=== PATIENT | female | born 1965 | race Two or more races ===

== ENCOUNTER 2018-12-25 05:51 | Day surgery (SDC) | payer OTHER ==
[~2018-12-25 05:51] MED LIST: ATIVAN2 M1 PO; CALTRATE 600 +1 EACH PO; DEPAKOTE ER250 MG PO; ESKALITH300 MG PO; HALDOL PO; OSTERA TABLET1 EACH PO; PRILOSEC OTC20 MG PO; RESTORIL30 M1 PO; SEROQUEL400 MG PO; SINGULAIR10 MG PO; SYNTHROID112 MCG PO; TYLENOL ARTHRI650 MG PO; VISTARIL25 MG PO; [UNRECOGNIZED DRUG - OTHER] PO
[2018-12-25] MEDS ORDERED: PERCOCET 5-3251 EACH PO (09:32)
== END 2018-12-25 11:30 | disposition home or self-care (01) ==
LOC: CIR.AMB 05:51
DX: M23.322 Other meniscus derangements, posterior horn of medial meniscus, left knee (principal); M23.352 Other meniscus derangements, posterior horn of lateral meniscus, left knee; M23.312 Other meniscus derangements, anterior horn of medial meniscus, left knee; M94.262 Chondromalacia, left knee; M65.862 Other synovitis and tenosynovitis, left lower leg